=== PATIENT | male | born 1950 | race Caucasian/White ===

== ENCOUNTER 2017-03-05 21:27 | Emergency (ER) | payer OTHER ==
[~2017-03-05] VITALS: Ht 188 cm; Wt 109.0 kg
[2017-03-05 21:37] VITALS: TEMP 36.5; Ht 188 cm; Wt 109.0 kg
[2017-03-05] MEDS ORDERED: HYDROCODONE/ACETAMOPHEN 5/325MG TAB PO ONE (22:00)
[2017-03-05] MEDS ORDERED: CRS/10 PO (22:08)
[2017-03-05] MEDS ORDERED: AMLO-110 PO (22:08)
[2017-03-05] MEDS ORDERED: LEVE750T PO (22:08)
[2017-03-05] MEDS ORDERED: MULT1TAB18 PO (22:08)
[2017-03-05] MEDS ORDERED: IBUP-1050 PO (22:08)
[2017-03-05] MEDS ORDERED: METO-217 PO (22:08)
[2017-03-05] MEDS ORDERED: ASPI81TA28 PO (22:08)
[2017-03-05] MEDS ORDERED: VALS320T PO (22:08)
[2017-03-05] MEDS ORDERED: GLUC1TAB94 PO (22:08)
--- NOTE | 2017-03-05 22:19 | DIAGNOSTIC IMAGING REPORT ---
R KNEE 3 VIEWS CLINICAL HISTORY: 66 years-old Male presenting with right knee injury. TECHNIQUE: Frontal, lateral, and sunrise views of the right knee were obtained. COMPARISON: None. FINDINGS: No acute fracture or malalignment. Degenerative changes of the patellofemoral articulation. Mild medial joint space loss suggested. No large joint effusion. Diffuse subcutaneous tissue infiltration with prominent soft tissue along the medial aspect of the joint. IMPRESSION: 1. No acute osseous injury. 2. Prominent soft tissue along the medial aspect of the right knee joint suggests contusion or hematoma. Electronically signed by: Ever Eldridge M.D. 03/05/2017 10:18 PM Dictated Date/Time: 03/05/2017 10:16 PM
[2017-03-05] MEDS ORDERED: HYDR-5688 PO (22:49)
[2017-03-05 22:54] VITALS: PULSE 55; O2SAT 97
[2017-03-05 22:58] VITALS: BP 122/57
[2017-03-05] MEDS ORDERED: NORCO 5/325MG HOME PACK PO ONE (23:00)
--- NOTE | 2017-03-06 06:12 | EMERGENCY ROOM VISIT NOTE ---
ED Visit Note First contact with patient: 21:43 CHIEF COMPLAINT: knee pain HISTORY OF PRESENT ILLNESS: This 66 year old male patient presents to the emergency department after sustaining an injury to the right knee about 2 hours ago. The patient was at the [employer] football game and was walking up and down the bleachers. The patient slipped forward and struck the inside of his right knee on one of the bleachers. He was able to ambulate after the injury but has increasing pain. The patient denies any other injuries besides their knee. They rate the pain as dull and 7/10. No numbness or tingling. No previous injuries to this knee. No ankle, foot or hip pain. REVIEW OF SYSTEMS: A 6 system review of systems was completed with positives and pertinent negatives listed in the HPI. ALLERGIES: No known allergies MEDICATIONS: See EMR PMH: See EMR SOCIAL HISTORY: Lives in [place] with family. Visiting for the football game. PHYSICAL EXAM: Vital Signs: Reviewed Nurse's notes, vital signs stable. GENERAL : White male, no acute distress, but appears in pain, well-developed, well- nourished. MENTAL STATUS: Alert, oriented to person place and time, and cooperative. MUSCULOSKELETAL: The right knee is swollen along the medial aspect. There is no ecchymosis. There is no joint effusion present. The patient is tender medially. There is medial joint line tenderness. The patella does not subluxate. Range of motion is normal. Strength of the quads and hamstrings is 5/5. Zain's is Negative. Elham's and Anterior Drawer tests are negative. There is no laxy with varus and valgus stressing. The foot and toes are warm and well-perfused. Dorsalis pedis pulse 2+. Sensation to pain and light touch is intact. Capillary refill less than 2 seconds. R KNEE 3 VIEWS CLINICAL HISTORY: 66 years-old Male presenting with right knee injury. TECHNIQUE: Frontal, lateral, and sunrise views of the right knee were obtained. COMPARISON: None. FINDINGS: No acute fracture or malalignment. Degenerative changes of the patellofemoral articulation. Mild medial joint space loss suggested. No large joint effusion. Diffuse subcutaneous tissue infiltration with prominent soft tissue along the medial aspect of the joint. IMPRESSION: 1. No acute osseous injury. 2. Prominent soft tissue along the medial aspect of the right knee joint suggests contusion or hematoma. EMERGENCY DEPARTMENT COURSE: Physical exam and history were performed. Nursing notes and EMR were reviewed. The patient appears to have injured himself at the football game this afternoon. He does have tenderness along the medial aspect of the right knee where he did suffer a contusion injury. X-ray was obtained and does not show evidence of bony injury. X-ray does suggest contusion versus hematoma, and clinically the patient is quite sore in the area of question. He will be given a course of Vicodin with his first dose provided here. He was able to perform an ambulatory trial with a walker. The patient appears well for discharge home, and should follow with his primary care physician or orthopedic specialists back home. He was otherwise invited back to the ER with any new, worsening, or concerning symptoms. Current/Historical Medications Scheduled Amlodipine (Norvasc), 5 MG PO DAILY Aspirin (Aspirin Ec), 81 MG PO DAILY Mgjmqlrcdqh-Zhnjjiretxh-Zfqgmo (Move Free Joint Health Ad), 1 TAB PO DAILY Ibuprofen (Advil), 800 MG PO PRN UD Levetiracetam (Keppra), 750 MG PO BID Metoprolol Succinate (Toprol Xl), 50 MG PO DAILY Multiple Vitamins W/ Minerals (One Daily For Men 50+ Adv), 1 TAB PO DAILY Rosuvastatin Calcium (Crestor), 10 MG PO DAILY Valsartan (Diovan), 320 MG PO DAILY Scheduled PRN Hydrocodone/Acetaminophen 5MG/325MG ([place] 5MG/325MG), 1-2 TABLET PO Q6 PRN for Pain Allergies Coded Allergies: No Known Allergies (Unverified , 03/05/17) Vital Signs Date Time Temp Pulse Resp B/P (MAP) Pulse Ox O2 Delivery O2 Flow Rate FiO2 03/05/17 22:58 122/57 03/05/17 22:54 55 20 98/52 97 Room Air 03/05/17 21:37 36.5 65 18 152/77 94 Room Air Medications Administered Medications (Trade) Dose Ordered Sig/Epi Route Start Time Stop Time Status Last Admin Dose Admin Acetaminophen/ Hydrocodone Bitart ([place] 5/325 Tab) 2 tab NOW ONCE PO 03/05/17 22:00 03/05/17 22:01 DC 03/05/17 21:53 2 TAB Acetaminophen/ Hydrocodone Bitart ([place] 5/325mg Home Pack) 1 homepack UD ONCE PO 03/05/17 23:00 03/05/17 23:01 DC 03/05/17 23:01 1 HOMEPACK Departure Information Impression Primary Impression: Injury of right knee Additional Impression: Hematoma of leg Dispostion Home / Self-Care Condition GOOD Prescriptions Hydrocodone/Acetaminophen 5MG/325MG ([place] 5MG/325MG) Tab 1-2 TABLET PO Q6 Y for Pain, #15 TAB For Initial Treatment Prov: Brayden Mcdonnell PA-C 03/05/17 Forms HOME CARE DOCUMENTATION FORM, IMPORTANT VISIT INFORMATION Patient Instructions My [facility] Additional Instructions You were seen and evaluated today on an emergency basis only. This is not a substitute for, or an effort to provide, complete comprehensive medical care. It is not possible to recognize and treat all injuries or illnesses in a single emergency department visit. For this reason it is recommended that you followup with your primary care physician next week for ongoing care and evaluation. For baseline pain relief you may alternate ibuprofen and acetaminophen every 4 hours for pain control. Take 600 mg ibuprofen (Advil) and then 4 hours later take 1000 mg acetaminophen (Tylenol). Do not take more than 3000 mg acetaminophen in a single day. Hamilton (hydrocodone/acetaminophen) 5/325 mg every 6 hours as needed for worsening breakthrough pain. Do not drink or drive on [place]. This medication will likely make you tired. Do not take Hamilton and Tylenol at the same time as both contain acetaminophen. Hamilton may cause constipation. You may wish to take an [id number] stool softener like Colace if this occurs. You are welcome to return to the emergency department anytime with new, worsening, or concerning symptoms. Problem Qualifiers
== END 2017-03-05 23:08 | disposition home or self-care (01) ==
LOC: C.EDB 21:30 → C.EDD 23:08
DX: S89.91XA Unspecified injury of right lower leg, initial encounter (principal); S80.01XA Contusion of right knee, initial encounter; Z79.82 Long term (current) use of aspirin; Z79.899 Other long term (current) drug therapy; W22.8XXA Striking against or struck by other objects, initial encounter